=== PATIENT | male | born 1985 | race Caucasian/White ===

== ENCOUNTER 2018-08-16 14:18 | Emergency (ER) | payer SELFPAY ==
[2018-08-16 15:38] LABS: Absolute Lymphocytes (CBC) 1.8 K/uL (0.7-4.9); Absolute Monocytes 0.9 K/uL (0.1-1.3); Absolute Neutrophil 8.2 K/uL (1.8-8.0); Basophils % 0.7 % (0-1.3); Eosinophils % 1.1 % (0-4.4); Hematocrit 44.7 % (39.6-49.0); MPV 8.3 fL (7.6-11.3); Monocytes % 8.3 % (3.3-12.3); RBC Red Blood Cell Count 4.45 M/uL (4.33-5.43)
[2018-08-16 15:55] LABS: ALT/SGPT 96 U/L (12-78); AST/SGOT 64 U/L (15-37); Alkaline Phosphatase 138 U/L (45-117); BUN Blood Urea Nitrogen 9 mg/dL (7-18); Bicarbonate 27 mmol/L (21-32); Bilirubin Total 0.8 mg/dL (0.2-1.0); Glucose Level 104 mg/dL (74-106); Potassium 3.9 mmol/L (3.5-5.1); Protein, Total 8.5 g/dL (6.4-8.2); Sodium Level 140 mmol/L (136-145)
--- NOTE | 2018-08-16 16:22 | RAD REPORT ---
[facility]: facial swelling Pain and swelling right face COMPARISON: No comparisons TECHNIQUE: Axial 2 mm thick images of the face were obtained with sagittal and coronal reconstructio n images. All CT scans are performed using dose optimization technique as appropriate and may include automated exposure control or mA/KV adjustment according to patient size. FINDINGS: A subperiosteal abscess is seen anterior to the right maxilla measuring 14 x 8 x 15 mm (T x AP x CC). Small defect is seen in the anterior cortex of the right maxilla measuring 2 mm with a fo jerome adjacent periapical abscess measuring 9 x 4 x 12 mm (CC x T x AP). This periapical abscess appear s to involve predominately the right maxillary first molar. Right premaxillary soft tissues are moder ately inflamed and thickened. Moderate polypoid mucosal thickening involves the right maxillary antrum, anterior right ethmoid air cell and right frontal sinus.The paranasal sinuses and mastoids are otherwise clear. The skullbase is intact. IMPRESSION: Periapical and odontogenic abscess along the right maxilla as detailed.
[2018-08-16] MEDS ORDERED: BUPIVACAINE 0.5% PF 10 ML VIAL ONE (17:01)
[2018-08-16] MEDS ORDERED: LIDOCAINE 1% 20 ML MDV ONE (17:02)
[2018-08-16] MEDS ORDERED: CLINDAMYCIN 900MG/D5W 900 MG/50 ML IVPB IV ONE (17:15)
[2018-08-16] MEDS ORDERED: DEXAMETHASONE 4 MG/ML VIAL ONE (17:41)
--- NOTE | 2018-08-16 18:11 | ER ---
Nurse's Notes [facility] Name: Trevor Ramon Age: 32 yrs Sex: Male : 1985 Arrival Date: 08/16/2018 Time: 14:21 Bed 14 Private MD: None, None Diagnosis: Dental Abscess Presentation: 08/16 14:25 Presenting complaint: Patient states: i woke up 3 days ago and my cheek was swollen, tw2 and it just has gotten worse now and it is interfering with my eating. Transition of care: patient was not received from another setting of care. Onset of symptoms was August 16, 2018. Risk Assessment: Do you want to hurt yourself or someone else? Patient reports no desire to harm self or others. Initial Sepsis Screen: Does the patient meet any 2 criteria? No. Patient's initial sepsis screen is negative. Does the patient have a suspected source of infection? No. Patient's initial sepsis screen is negative. Care prior to arrival: None. 14:25 Method Of Arrival: Ambulatory tw2 14:25 Acuity: STEPHANIE 3 tw2 Triage Assessment: 14:29 General: Appears in no apparent distress. Behavior is anxious. Pain: Complains of pain tw2 in face. Derm: swelling present mostly on RIGHT side of face and lips. Historical: - Allergies: 14:29 No Known Allergies; tw2 - Home Meds: 14:29 None [Active]; tw2 - PMHx: 14:29 None; tw2 - PSHx: 14:29 None; tw2 - Immunization history:: Adult Immunizations unknown, Last tetanus immunization: < 5 years ago. - Social history:: Smoking status: Patient uses tobacco products, denies chronic smoking, but will smoke occasionally. - Ebola Screening: : Patient denies travel to an Ebola-affected area in the 21 days before illness onset. Screenin:34 Abuse screen: Denies threats or abuse. Denies injuries from another. Nutritional bp screening: No deficits noted. Tuberculosis screening: No symptoms or risk factors identified. Fall Risk None identified. Assessment: 14:30 General: Appears in no apparent distress. uncomfortable, Behavior is calm, cooperative, bp appropriate for age. Pain: Complains of pain in face. Neuro: Level of Consciousness is awake, alert, obeys commands, Oriented to person, place, time, situation, Appropriate for age. Cardiovascular: No deficits noted. Respiratory: Airway is patent Respiratory effort is even, unlabored. GI: No signs and/or symptoms were reported involving the gastrointestinal system. : No signs and/or symptoms were reported regarding the genitourinary system. EENT: SWELLING TO R FACE FROM MANDIBLE TO TITI-ORBITAL. Derm: No deficits noted. Musculoskeletal: Circulation, motion, and sensation intact. Range of motion: intact in all extremities. 16:22 Reassessment: ALL CURRENT ORDERS COMPLETED, RESULTS PENDING. bp 17:17 Reassessment: PROVIDER AT B/S FOR I\T\D. bp 18:29 Reassessment: PT D/C HOME AMBULATORY, DX WITH DENTAL ABSCESS. bp Vital Signs: 14:28 BP 174 / 116; Pulse 106; Resp 19; Temp 99(O); Pulse Ox 99% on R/A; Weight 99.79 kg (R); tw2 Height 6 ft. 0 in. (182.88 cm) (R); Pain 2/10; 16:23 BP 143 / 108; Pulse 93; Resp 16; Pulse Ox 98% ; bp 17:17 BP 173 / 109; Pulse 107; Resp 14; Pulse Ox 98% ; bp 17:35 BP 167 / 95; Pulse 97; Resp 18; Pulse Ox 97% ; bp 18:15 BP 145 / 97; Pulse 100; Resp 16; Pulse Ox 99% ; bp 14:28 Body Mass Index 29.84 (99.79 kg, 182.88 cm) tw2 14:28 irritating, but if you push on it its a 10 tw2 ED Course: 14:21 Patient arrived in ED. mr 14:22 None, None is Private Physician. mr 14:28 Triage completed. tw2 14:30 Arm band placed on. tw2 14:33 Toi Soares, RN is Primary Nurse. bp 14:34 Patient has correct armband on for positive identification. Bed in low position. Call bp light in reach. Side rails up X2. Adult w/ patient. 14:44 Baljeet Malhotra PA is PHCP. [facility] 14:44 Servando Bryant MD is Attending Physician. jmm 15:15 Inserted saline lock: 20 gauge in right antecubital area, using aseptic technique. bp Blood collected. 16:[address] via wheelchair. vm2 16:06 CT completed. Patient tolerated procedure well. Patient moved back from CT. vm2 16:09 CT Facial Bones W/ Con \T\ Mpr In Process Unspecified. EDMS 17:15 Assist provider with I \T\ D: of an abscess on right DENTAL ABSCESS Set up I\T\D tray. bp Performed by Servando Bryant MD Patient tolerated well. 18:10 Glen Toledo, LASHA is Referral Physician. jmm 18:31 IV discontinued, intact, bleeding controlled, No redness/swelling at site. Pressure bp dressing applied. Administered Medications: 16:57 Not Given (med not available): Lidocaine-Epinephrine -1%: (1:100,000) 10 ml 20 ml bp Infiltration once; to bedside 16:58 Drug: Marcaine (0.5 %) 10 ml Volume: 10 ml; Route: Infiltration; bp 16:58 Drug: Lidocaine (1 %) 20 mg Volume: 20 ml; Route: Infiltration; bp 17:00 Drug: Clindamycin 900 mg Route: IVPB; Infused Over: 30 mins; Site: right antecubital; bp 18:00 Follow up: IV Status: Completed infusion; IV Intake: 100ml bp 17:34 Drug: Dexamethasone 10 mg Route: PO; bp 18:30 Follow up: Response: No adverse reaction; Pain is decreased bp Intake: 18:00 IV: 100ml; Total: 100ml. bp Outcome: 18:11 Discharge ordered by MD. [facility] 18:32 Discharged to home ambulatory, with family. bp 18:32 Condition: stable 18:32 Discharge instructions given to patient, Instructed on discharge instructions, follow up and referral plans. medication usage, Demonstrated understanding of instructions, follow-up care, medications, Prescriptions given X 3. 18:32 Patient left the ED. bp Signatures: Dispatcher [employer] EDMS Baljeet Malhotra PA PA Leah Moyer mr Vika Mccullough, VENECIA RN 2 Macey Corbett [facility] Toi Soares, VENECIA RN bp
--- NOTE | 2018-08-16 18:12 | EDPHYS ---
Physician Documentation [facility] Name: Trevor Ramon Age: 32 yrs Sex: Male : 1985 Arrival Date: 08/16/2018 Time: 14:21 Bed 14 Private MD: None, None ED Physician Servando Bryant HPI: 08/16 14:51 This 32 yrs old Male presents to ER via Ambulatory with complaints of Facial jmm Swelling. 14:51 The patient presents with pain, swelling. Onset: The symptoms/episode began/occurred jmm gradually, 3 day(s) ago. Duration: The symptoms are continuous. Associated signs and symptoms: Pertinent positives: swelling, Pertinent negatives: fever. This is a 32 year old male with no chronic medical conditions that presents to the ED with complaints of swelling to the right side of his face. Patient denies dental pain. Denies fever. . Historical: - Allergies: 14:29 No Known Allergies; tw2 - Home Meds: 14:29 None [Active]; tw2 - PMHx: 14:29 None; tw2 - PSHx: 14:29 None; tw2 - Immunization history:: Adult Immunizations unknown, Last tetanus immunization: < 5 years ago. - Social history:: Smoking status: Patient uses tobacco products, denies chronic smoking, but will smoke occasionally. - Ebola Screening: : Patient denies travel to an Ebola-affected area in the 21 days before illness onset. ROS: 14:51 Constitutional: Negative for fever, chills, and weight loss, Cardiovascular: Negative jmm for chest pain, palpitations, and edema, Respiratory: Negative for shortness of breath, cough, wheezing, and pleuritic chest pain. 14:51 Skin: Positive for swelling. 14:51 All other systems are negative. Exam: 14:51 Constitutional: This is a well developed, well nourished patient who is awake, alert, jmm and in no acute distress. 14:51 Neck: Trachea midline, Supple Chest/axilla: Normal chest wall appearance and motion. Cardiovascular: Regular rate and rhythm. No edema appreciated Respiratory: Normal respirations, no respiratory distress appreciated Abdomen/GI: Non distended, soft 14:51 Head/face: right maxillary region swelling is appreciated. 14:51 ENT: Posterior pharynx: is normal, Dental exam: dental caries, that is moderate, specifically in the upper right first molar (#3), upper right second bicuspid (#4) and upper right first bicuspid (#5). 14:51 Skin: mild erythema noted to the right maxillary region. 14:51 Neuro: Orientation: is normal, Mentation: is normal, Memory: is normal. 14:51 Psych: Behavior/mood is pleasant, cooperative. Vital Signs: 14:28 BP 174 / 116; Pulse 106; Resp 19; Temp 99(O); Pulse Ox 99% on R/A; Weight 99.79 kg (R); tw2 Height 6 ft. 0 in. (182.88 cm) (R); Pain 2/10; 16:23 BP 143 / 108; Pulse 93; Resp 16; Pulse Ox 98% ; bp 17:17 BP 173 / 109; Pulse 107; Resp 14; Pulse Ox 98% ; bp 17:35 BP 167 / 95; Pulse 97; Resp 18; Pulse Ox 97% ; bp 18:15 BP 145 / 97; Pulse 100; Resp 16; Pulse Ox 99% ; bp 14:28 Body Mass Index 29.84 (99.79 kg, 182.88 cm) tw2 14:28 irritating, but if you push on it its a 10 tw2 Procedures: 14:51 I \T\ D: Incision and drainage was performed for an abscess of the upper right second [facility] bicuspid (#4) Anesthetized with 5 ml's 1% Lidocaine. Incised with #11 blade. Drained moderate amount purulent fluid. Dressing: None the patient tolerated the procedure well. MDM: 14:51 Patient medically screened. [facility] 18:09 Data reviewed: vital signs, nurses notes. Counseling: I had a detailed discussion with esa the patient and/or guardian regarding: the historical points, exam findings, and any diagnostic results supporting the discharge/admit diagnosis, lab results, radiology results, the need for outpatient follow up, to return to the emergency department if symptoms worsen or persist or if there are any questions or concerns that arise at home. ED course: Patient is alert and non toxic in appearance in the ED. Abscess drained. Patient is advised to closely follow up with dentist or oral surgery. Patient is given return precautions. patient understood and agrees with the plan of care. . 08/16 14:54 Order name: CBC with Diff; Complete Time: 16:07 [facility] 08/16 14:54 Order name: CMP; Complete Time: 16:07 [facility] 08/16 14:54 Order name: Procalcitonin; Complete Time: 17:23 [facility] 08/16 14:54 Order name: Blood Culture Adult (2) [facility] 08/16 14:54 Order name: Lactate; Complete Time: 16:07 [facility] 08/16 14:54 Order name: CT Facial Bones W/ Con \T\ Mpr; Complete Time: 16:28 [facility] 08/16 14:54 Order name: Saline Lock; Complete Time: 15:26 [facility] 08/16 16:45 Order name: Dressing - Wound; Complete Time: 16:57 [facility] 08/16 16:45 Order name: Gloves, Sterile; Complete Time: 16:57 [facility] 08/16 16:45 Order name: Setup Suture Tray; Complete Time: 16:57 jm Administered Medications: 16:57 Not Given (med not available): Lidocaine-Epinephrine -1%: (1:100,000) 10 ml 20 ml bp Infiltration once; to bedside 16:58 Drug: Marcaine (0.5 %) 10 ml Volume: 10 ml; Route: Infiltration; bp 16:58 Drug: Lidocaine (1 %) 20 mg Volume: 20 ml; Route: Infiltration; bp 17:00 Drug: Clindamycin 900 mg Route: IVPB; Infused Over: 30 mins; Site: right antecubital; bp 18:00 Follow up: IV Status: Completed infusion; IV Intake: 100ml bp 17:34 Drug: Dexamethasone 10 mg Route: PO; bp 18:30 Follow up: Response: No adverse reaction; Pain is decreased bp Disposition: 18:54 Co-signature as Attending Physician, Servando Bryant MD Available for consultation at [facility] all times. . Disposition: 08/16/18 18:11 Discharged to Home. Impression: Dental Abscess. - Condition is Stable. - Discharge Instructions: Dental Abscess. - Prescriptions for Peridex 0.12 % Mucous Membrane mouthwash - place 15 milliliter by MUCOUS MEMBRANE route 2 times per day after brushing teeth, swish in mouth for 30 seconds then spit out; 120 milliliter. Clindamycin HCl 300 mg Oral Capsule - take 1 capsule by ORAL route every 6 hours for 10 days; 40 capsule. Tylenol- Codeine #3 300-30 mg Oral Tablet - take 1 tablet by ORAL route every 6 hours As needed; 20 tablet. - Medication Reconciliation Form, Thank You Letter, Antibiotic Education, Prescription Opioid Use form. - Follow up: Glen Toledo DDS; When: As needed; Reason: Recheck today's complaints, Continuance of care, Re-evaluation by your physician. Signatures: Dispatcher [employer] EDMS Baljeet Malhotra PA PA jmm Wise, Tara RN RN tw2 Toi Soares RN RN bp Servando Bryant MD MD ps1 Corrections: (The following items were deleted from the chart) 18:32 18:11 08/16/2018 18:11 Discharged to Home. Impression: Dental Abscess. Condition is bp Stable. Forms are Medication Reconciliation Form, Thank You Letter, Antibiotic Education, Prescription Opioid Use. Follow up: Glen Toledo; When: As needed; Reason: Recheck today's complaints, Continuance of care, Re-evaluation by your physician. esa
== END 2018-08-16 18:32 | disposition home or self-care (01) ==
LOC: ER 14:18
PROC: 0W930ZZ Drainage of Oral Cavity and Throat, Open Approach (ICD-10-PCS; principal; 2018-08-16)
DX: K04.7 Periapical abscess without sinus (principal); Z72.0 Tobacco use
CPT/HCPCS: 36415; 70487; 76377; 80053; 83605; 84145; 85025; 87040; 96365; 99284; Q9967